=== PATIENT | female | born 1950 | race American Indian/Alaskan Native ===

== ENCOUNTER 2016-05-13 08:18 | Outpatient (CLI) | payer MEDICARE, OTHER ==
--- NOTE | 2016-05-13 11:46 | Mammography Report ---
BILATERAL DIGITAL SCREENING MAMMOGRAM: Comparison study is dated December 05, 2014. FINDINGS: There are scattered fibroglandular densities. A stable, circumscribed nodular opacity in the upper-outer quadrant of the right breast is noted. This measures 8 mm in diameter. There are no masses, architectural distortion, or suspicious calcifications. IMPRESSION: Stable benign findings. BI-RADS CATEGORY: 2 = Benign ACR BI-RADS MAMMOGRAPHIC CODES: 0 = Needs additional imaging evaluation; 1 = Negative; 2 = Benign; 3 = Probably benign; 4 = Suspicious; 5 = Malignant; 6 = Known biopsy-proven malignancy COMMENT: 1. Dense breast tissue, i.e., adenosis, fibrocystic changes, etc., may obscure an underlying neoplasm. 2. Approximately 10% of cancers are not detected with mammography. 3. A negative mammography report should not delay biopsy if a clinically suspicious mass is present. RECOMMENDATION: Annual screening. COMMENT: Patient follow-up letters are generated in [employer].
== END 2016-05-13 08:19 | disposition home or self-care (01) ==
LOC: MAMMO 08:18
PROVIDERS: ATTEND Hospitalist
DX: Z12.31 Encounter for screening mammogram for malignant neoplasm of breast (principal)
CPT/HCPCS: 77067; G0202